=== PATIENT | female | born 1940 | race Two or more races ===

== ENCOUNTER 2023-05-27 17:15 | Emergency (ER) | payer BC, MEDICAID ==
[~2023-05-27] VITALS: Ht 152.4 cm; Wt 38.6 kg
[2023-05-27] MEDS ORDERED: IV NORMAL SALINE 500 ML BAG IV ONE (17:30)
[2023-05-27] MEDS ORDERED: CLONIDINE HCL 0.1 MG TABLET ONE (17:44)
[2023-05-27] MEDS ORDERED: CLONIDINE HCL 0.1 MG TABLET PO ONE (17:45)
[2023-05-27 18:03] LABS: BASOPHILS % (AUTO) 0.3 % (0.0-2.0); CALCIUM 9.9 mg/dL (8.5-10.1); CARBON DIOXIDE 27 mmol/L (21-32); CHLORIDE 104 mmol/L (98-107); EOSINOPHILS % (AUTO) 0.1 % (0.0-7.0); GLUCOSE 170 mg/dL (74-106); HEMATOCRIT 46.2 % (31.2-41.9); HEMOGLOBIN 15.3 g/dL (10.9-14.3); LYMPHOCYTES # (AUTO) 0.7 K/uL (0.8-4.8); LYMPHOCYTES % (AUTO) 5.7 % (20.5-51.5); MEAN CORPUSCULAR HEMOGLOBIN 29.3 uug (24.7-32.8); MEAN CORPUSCULAR HGB CONC 33 g/dL (32.3-35.6); MEAN CORPUSCULAR VOLUME 88.4 fL (75.5-95.3); MONOCYTES # (AUTO) 0.7 K/uL (0.1-1.30); MONOCYTES % (AUTO) 5.6 % (0.0-11.0); NEUTROPHILS # (AUTO) 10.7 K/uL (1.8-8.9); NEUTROPHILS % (AUTO) 88.3 % (38.5-71.5); PLATELET COUNT (AUTO) 378 K/uL (179-408); POTASSIUM 4.6 mmol/L (3.5-5.1); RED BLOOD CELL COUNT(AUTO) 5.22 MIL/uL (3.63-4.92); RED CELL DISTRIBUTION WIDTH 13.8 % (12.3-17.7); SODIUM SERUM 138 mmol/L (136-145); UREA NITROGEN, BLOOD 57 mg/dL (7-18); WHITE BLOOD COUNT (AUTO) 12.2 K/uL (3.8-11.8)
[2023-05-27 18:04] LABS: DIFFERENTIAL COMMENT 1
[2023-05-27 18:05] LABS: AMMONIA < 10 umol/L (11-32)
[2023-05-27 18:09] LABS: ALANINE AMINOTRANSFERASE 26 U/L (14-59); ALBUMIN 3.3 g/dL (3.4-5.0); ALKALINE PHOSPHATASE 87 U/L (50-136); ASPARTATE AMINOTRANSFERASE 34 U/L (15-37); BILIRUBIN,DIRECT 0.2 mg/dL (0.0-0.2); BILIRUBIN,TOTAL 0.8 mg/dL (0.2-1.0)
[2023-05-27 18:12] LABS: ETHANOL < 3 MG/DL (0-10)
[2023-05-27 18:16] LABS: THYROID STIMULATING HORMONE 0.605 mIU/mL (0.358-3.740)
[2023-05-27 19:08] VITALS: BP 176/69; O2SAT 94
== END 2023-05-27 19:08 | disposition home or self-care (01) ==
LOC: ER 17:17 → MERGE 17:17 → ER 19:08
DX: I10 Essential (primary) hypertension (principal); E86.0 Dehydration; M19.90 Unspecified osteoarthritis, unspecified site
CPT/HCPCS: 36415; 71045; 83605; 84443; 85025; 85730; 87040; 93005; A4606; A4663; G0480; J7040

== ENCOUNTER 2023-05-27 19:15 | Emergency (ER) | payer BC | END 2023-05-27 21:30 | disposition left against medical advice (07) | LOC: UNMERGE 19:22 → MERGE 19:22 → ER 19:22 | DX: Z53.21 Procedure and treatment not carried out due to patient leaving prior to being seen by health care provider (principal) ==